=== PATIENT | female | born 1970 | race Caucasian/White ===

== ENCOUNTER 2019-09-20 06:39 | Day surgery (SDC) | payer OTHER ==
--- NOTE | 2019-09-18 08:30 | NUR ---
EKG RESULT WAS FAXED TO DR. ARNOLD'S OFFICE AND GIVEN TO ANESTHESIA FOR REVIEW.
--- NOTE | 2019-09-18 16:15 | NUR ---
SPOKE WITH DR GABRIEL BORJA. UPDATED WITH PREOP EKG READING SHOWING T WAVE ABNORMALITY. SHE WILL SPEAK WITH DR SHEN ARNOLD AND CALL WITH ANY ADDITIONAL ORDERS.
--- NOTE | 2019-09-18 16:29 | NUR ---
SPOKE WITH DR SHEN ARNOLD. UPDATED WITH PREOP EKG RESULTS. NO FURTHER ORDERS.
[~2019-09-20] VITALS: Ht 154.9 cm; Wt 77.6 kg
[2019-09-20 06:54] VITALS: BP 105/68
[2019-09-20 16:20] VITALS: BP 114/71
== END 2019-09-20 16:10 | disposition home or self-care (01) ==
LOC: DS 06:39 → OR 11:00 → DS 16:10
DX: C50.211 Malignant neoplasm of upper-inner quadrant of right female breast (principal)
CPT/HCPCS: 88344; 88361; J0690; J2175; J2250; J3010; J3490; Q9968